=== PATIENT | male | born 1955 | race Caucasian/White ===

== ENCOUNTER 2024-08-27 06:20 | Outpatient (CLI) | payer OTHER | END 2024-08-28 14:10 | disposition home or self-care (01) | LOC: MRI 06:20 | PROVIDERS: ATTEND Orthopaedic Surgery | DX: M25.519 Pain in unspecified shoulder (principal); S40.011A Contusion of right shoulder, initial encounter; S40.012A Contusion of left shoulder, initial encounter; S49.81XA Other specified injuries of right shoulder and upper arm, initial encounter | CPT/HCPCS: 73221 ==